=== PATIENT | male | born 1985 | race Caucasian/White ===

== ENCOUNTER 2016-11-21 13:41 | Emergency (ER) | payer OTHER ==
--- NOTE | 2016-11-21 14:13 | ED CLINICAL REPORT ---
Clinical Report - Physicians/Mid Levels [facility] [address] [place] [address] 11/21/2016 13:43 Patient: HERMAN MANN Time Seen: 13:59; initial patient contact, initial documentation, patient care assumed. Arrived- By private vehicle. Historian- patient. HISTORY OF PRESENT ILLNESS Chief Complaint: COUGH, SORE THROAT, FEVER and MUSCLE ACHES. This started about 2 weeks ago and is still present. The illness is described as moderate. The patient has had a cough, a sore throat, nasal congestion, sinus pressure and sinus drainage. He has had fever and muscle aches. He has had scant amounts of thick, yellow, green, white sputum. No blood tinged sputum or frankly bloody sputum. No difficulty breathing, chest discomfort or ear pain. (would like antibiotic shot here if ok). Additional history - The patient has had contact with a sick individual. They have had similar symptoms. No recent travel. Similar symptoms previously: None. Recent medical care: Not recently seen/assessed. REVIEW OF SYSTEMS The patient has had a headache. All systems otherwise negative, except as recorded above. PAST HISTORY See nurses notes. PROBLEMS: Cellulitis. Laceration. Hypertension. Hepatitis c. Substance Abuse. --13:58 Mirna Vera R.N. ADDITIONAL SURGERIES: no known surgeries. SOCIAL HISTORY Light tobacco smoker. History of weekly drug use: marijuana. Not exposed to second-hand smoke at home. No alcohol use. No recent travel. Is a local resident. FAMILY HISTORY Negative. ADDITIONAL NOTES The nursing notes have been reviewed with agreement regarding the chief complaint, HPI, ROS, PMH and patient medications and allergies. PHYSICAL EXAM Vital Signs: 11/21/2016 13:55 BP: 141/96. HR: 99. RR: 16. O2 saturation: 96%. Temp: 97.8 F. Pain level now: 4/10. Have been reviewed as normal and appear to be correct. Appearance: Alert. No acute distress. Eyes: Pupils equal, round and reactive to light. Eyes normal inspection. ENT: Ears normal. Nose normal. Pharynx abnormal. Mild generalized pharyngeal erythema. No pharyngeal vesicles or ulcerations. No right tonsillar exudate, right tonsillar abscess, right tonsillar swelling, right peritonsillitis, left tonsillar exudate, left tonsillar abscess, left tonsillar swelling or left peritonsillitis. Uvula midline. Neck: Normal inspection. Neck supple. CVS: Normal heart rate and rhythm. Heart sounds normal. Pulses normal. Respiratory: No respiratory distress. Breath sounds abnormal. Inspiratory mild bilateral wheezes diffusely. Abdomen: Soft and nontender. No organomegaly. Back: Normal inspection. Skin: Skin warm and dry. Normal skin color. No rash. Normal skin turgor. Extremities: Extremities exhibit normal ROM. No lower extremity edema. Neuro: Oriented X 3. No motor deficit. No sensory deficit. PROGRESS AND PROCEDURES Patient counseled in person regarding the patient's stable condition and diagnosis. 14:13. Differential Diagnosis: Other possible considerations: flu, viral illness, bronchitis, pneumonia, sinusitis, pharyngitis. Above considerations are based on history and physical exam. Differential diagnosis was discussed with patient. Disposition: Discharged home in good and unchanged condition (14:13). Condition: good and stable. CLINICAL IMPRESSION Acute mucopurulent bronchitis. No chronic obstructive pulmonary disease, asthma or bronchospasm. INSTRUCTIONS Do not work today, for two days. Drink plenty of fluids for the next 24 hours until better. Warnings: GENERAL WARNINGS: Return or contact your physician immediately if your condition worsens or changes unexpectedly, if not improving as expected, or if other problems arise. Specifically return if problem worsens. Prescription Medications: Albuterol HFA oral inhaler: inhale 1 to 2 puffs every four to six hours as needed for difficulty breathing. Dispense one (1) unit. No refills. Zithromax 250 mg tablets: take 2 orally today, followed by 1 daily for the next 4 days. No refills. Substitution is permissible. Follow-up: Follow up with your doctor in about three days even if well. Call for an appointment. Summary of care provided to patient. Understanding of the discharge instructions verbalized. (Electronically signed by Yesika Smith A.R.N.P. 11/21/2016 16:56)
--- NOTE | 2016-11-21 14:14 | ED NURSING NOTES ---
Clinical Report - [place] [address] 11/21/2016 13:43 Patient: HERMAN MANN TRIAGE Triage time 13:55 Nov 21 2016. Acuity: LEVEL 5. Chief Complaint: COUGH and SORE THROAT and (sore throat, cough, congestion x 2 weeks). 14:02 11/21/16. SEPSIS SCREEN: Sepsis Screen. Negative (no infection suspected/documented). HEATHER COMA SCORE: Heather Coma Scale: 15- eyes open spontaneously (4); best verbal response- oriented x 4 (5); best motor response- obeys commands (6). --14:02 Mirna Vera R.N. 13:55 11/21/16. BP: 141/96 (regular adult cuff) taken on the left arm, while sitting. HR: 99 (regular). RR: 16 (regular). O2 saturation: 96% on room air. Temp: 97.8 F (oral). Pain level now: 4/10. Additional comments: STREET. --14:02 Mirna Vera R.N. Weight: 99.7 kg stated. Height/Length: 71 inches Per Patient. BMI: 30.7. --13:59 Mirna Vera R.N. Medications None. --13:58 Mirna Vera R.N. Allergies No Known Drug Allergy. --13:58 Mirna Vera R.N. History Arrived by private vehicle. Historian: significant other and patient. Accompanied by friend. ( sore throat, congestion x 2 weeks, took PCN of friends for one day). SOCIAL HX: Current every day light tobacco smoker- less than 1/2 a pack per day. History of weekly drug use: marijuana. No alcohol use. He has had contact with a sick individual. ABUSE ASSESSMENT: No report of abuse. FALL RISK ASSESSMENT: Fall risk assessment completed. No fall risk identified. NUTRITIONAL RISK ASSESSMENT: The nutritional risk assessment revealed no deficiencies. FUNCTIONAL ASSESSMENT: Functional assessment: no impairments noted. LEARNING NEEDS ASSESSMENT: The learning needs assessment revealed no barriers. SKIN INTEGRITY ASSESSMENT: Skin integrity risk assessment completed. No skin integrity risk identified. --14:02 Mirna Vera R.N. PROBLEMS: Cellulitis. Laceration. Hypertension. Hepatitis c. Substance Abuse. --13:58 Mirna Vera R.N. ADDITIONAL SURGERIES: no known surgeries. Interventions ID band on patient. To treatment room. --14:02 Mirna Vera R.N. PHYSICAL ASSESSMENT 14:02 11/21/16. Ambulatory to room. GENERAL / NEURO / PSYCH: Appears in no acute distress. --14:02 Mirna Vera R.N. NURSING PROGRESS NOTES 14:03 11/21/16. Head of bed elevated. Reassurance given. Two patient identifiers checked. Call light placed in reach. Side rails up. Bed placed in lowest position. Brakes of bed on. Patient ready for evaluation- chart flagged. --14:03 Mirna Vera R.N. 14:08 11/21/16. ( Patient provided blanket on request). --14:08 Mirna Vera R.N. 14:30 11/21/2016 Ceftriaxone IM 1 gm given. Given in the right deltoid. Allergies verified and confirmed 5 rights. --14:30 Mirna Vera R.N. DISPOSITION / DISCHARGE 14:54 11/21/16. Condition at departure: unchanged. No learning barriers present. Discharge instructions provided and reviewed with the patient. Reviewed medication(s) side effects and precautions information. Patient verbalized understanding. Written instructions provided in [place]. The patient was discharged by the nurse practitioner. He was discharged home and accompanied by dimension warehouse supervisor. He left the Emergency Department ambulatory and via private vehicle. [employer] driving. FALL RISK ASSESSMENT: Fall risk assessment completed. No fall risk identified. --14:54 Mirna Vera R.N. 14:51 11/21/16. BP: 144/77 (regular adult cuff) taken on the left arm, while lying. HR: 96 (regular). RR: 16. O2 saturation: 96% on room air. Temp: 97.9 F (oral). Pain level now: 10. --14:54 Mirna Vera R.N. Departure time: 1457. --14:56 Mirna Vera R.N. Locked/Released at 11/21/2016 14:58 by Mirna Vera R.N.
--- NOTE | 2016-11-21 14:14 | ED ORDER SUMMARY ---
..... Patient: HERMAN MANN OrderSheet [facility] VisitID: [id number] [address] [place] [address] 31y, M Registration Date/Time: 11/21/2016 ORDER SHEET Weight: 99.7 kg (stated) Allergies: No Known Drug Allergy GENERAL ORDERS: MEDICATION ORDERS: Ceftriaxone IM 1 gm (NOW) (14:10 11/21/2016 Poppy A.R.N.P.) (14:30 Dali R.N.) IV FLUIDS: ORDER SHEET NOTES: [Electronically signed by Mirna Vera R.N. (14:58 11/21/2016)] [Electronically signed by Yesika SmithR.N.P. (16:56 11/21/2016)] [Electronically locked/signed by Mirna Vera R.N. (14:58 11/21/2016)]
--- NOTE | 2016-11-21 14:14 | ED NURSING NOTES ---
Clinical Report - Nurses [facility] [place] [address] 11/21/2016 13:43 Patient: HERMAN MANN TRIAGE Triage time 13:55 Nov 21 2016. Acuity: LEVEL 5. Chief Complaint: COUGH and SORE THROAT and (sore throat, cough, congestion x 2 weeks). 14:02 11/21/16. SEPSIS SCREEN: Sepsis Screen. Negative (no infection suspected/documented). HEATHER COMA SCORE: Heather Coma Scale: 15- eyes open spontaneously (4); best verbal response- oriented x 4 (5); best motor response- obeys commands (6). --14:02 Mirna Vera R.N. 13:55 11/21/16. BP: 141/96 (regular adult cuff) taken on the left arm, while sitting. HR: 99 (regular). RR: 16 (regular). O2 saturation: 96% on room air. Temp: 97.8 F (oral). Pain level now: 4/10. Additional comments: STREET. --14:02 Mirna Vera R.N. Weight: 99.7 kg stated. Height/Length: 71 inches Per Patient. BMI: 30.7. --13:59 Mirna Vera R.N. Medications None. --13:58 Mirna Vera R.N. Allergies No Known Drug Allergy. --13:58 Mirna Vera R.N. History Arrived by private vehicle. Historian: significant other and patient. Accompanied by friend. ( sore throat, congestion x 2 weeks, took PCN of friends for one day). SOCIAL HX: Current every day light tobacco smoker- less than 1/2 a pack per day. History of weekly drug use: marijuana. No alcohol use. He has had contact with a sick individual. ABUSE ASSESSMENT: No report of abuse. FALL RISK ASSESSMENT: Fall risk assessment completed. No fall risk identified. NUTRITIONAL RISK ASSESSMENT: The nutritional risk assessment revealed no deficiencies. FUNCTIONAL ASSESSMENT: Functional assessment: no impairments noted. LEARNING NEEDS ASSESSMENT: The learning needs assessment revealed no barriers. SKIN INTEGRITY ASSESSMENT: Skin integrity risk assessment completed. No skin integrity risk identified. --14:02 Mirna Vera R.N. PROBLEMS: Cellulitis. Laceration. Hypertension. Hepatitis c. Substance Abuse. --13:58 Mirna Vera R.N. ADDITIONAL SURGERIES: no known surgeries. Interventions ID band on patient. To treatment room. --14:02 Mirna Vera R.N. PHYSICAL ASSESSMENT 14:02 11/21/16. Ambulatory to room. GENERAL / NEURO / PSYCH: Appears in no acute distress. --14:02 Mirna Vera R.N. NURSING PROGRESS NOTES 14:03 11/21/16. Head of bed elevated. Reassurance given. Two patient identifiers checked. Call light placed in reach. Side rails up. Bed placed in lowest position. Brakes of bed on. Patient ready for evaluation- chart flagged. --14:03 Mirna Vera R.N. 14:08 11/21/16. ( Patient provided blanket on request). --14:08 Mirna Vera R.N. 14:30 11/21/2016 Ceftriaxone IM 1 gm given. Given in the right deltoid. Allergies verified and confirmed 5 rights. --14:30 Mirna Vera R.N. DISPOSITION / DISCHARGE 14:54 11/21/16. Condition at departure: unchanged. No learning barriers present. Discharge instructions provided and reviewed with the patient. Reviewed medication(s) side effects and precautions information. Patient verbalized understanding. Written instructions provided in [place]. The patient was discharged by the nurse practitioner. He was discharged home and accompanied by patrol conductor. He left the Emergency Department ambulatory and via private vehicle. Lead Mechanic driving. FALL RISK ASSESSMENT: Fall risk assessment completed. No fall risk identified. --14:54 Mirna Vera R.N. 14:51 11/21/16. BP: 144/77 (regular adult cuff) taken on the left arm, while lying. HR: 96 (regular). RR: 16. O2 saturation: 96% on room air. Temp: 97.9 F (oral). Pain level now: 10. --14:54 Mirna Vera R.N. Departure time: 1457. --14:56 Mirna Vera R.N. Locked/Released at 11/21/2016 14:58 by Mirna Vera R.N.
--- NOTE | 2016-11-21 14:14 | ED ORDER SUMMARY ---
..... Patient: HERMAN MANN OrderSheet [facility] VisitID: [id number] [address] [place] [address] 31y, M Registration Date/Time: 11/21/2016 ORDER SHEET Weight: 99.7 kg (stated) Allergies: No Known Drug Allergy GENERAL ORDERS: MEDICATION ORDERS: Ceftriaxone IM 1 gm (NOW) (14:10 11/21/2016 Popyp A.R.N.P.) (14:30 Dali R.N.) IV FLUIDS: ORDER SHEET NOTES: [Electronically signed by Mirna Vera R.N. (14:58 11/21/2016)] [Electronically signed by Yesika SmithR.N.P. (16:56 11/21/2016)] [Electronically locked/signed by Mirna eVra R.N. (14:58 11/21/2016)]
--- NOTE | 2016-11-21 16:56 | ED MAR SUMMARY ---
..... Medication Administration Record [facility] [address] [place] [address] Patient: HERMAN MANN Visit ID: [id number] 31y, M Weight: 99.7 kg Height/Length: 71 in BMI: 30.7 ALLERGIES: No Known Drug Allergy Given 14:30 11/21/2016 Mirna Vera R.N. Medication Administered: CEFTRIAXONE [IM], Dose: 1 gm IM. Medication Ordered: Ceftriaxone IM 1 gm (NOW).
--- NOTE | 2016-11-21 16:56 | ED MED RECONCILIATION SUMMARY ---
Patient: HERMAN MANN Medication Reconciliation Report VisitID: [id number] [address] [place] [address] 31y, M Registration Date/Time: 11/21/2016 Weight: 99.7 kg Height/Length: 71 in. BMI: 30.7 ALLERGIES: No Known Drug Allergy The patient's Home Medications are listed below: NONE. The source(s) of the original Home Medication information: Not obtained. The following Medications were given to the patient in the Emergency Department: Ceftriaxone [IM] IM 1 gm, administered: 11/21/2016 2:30:00 PM The following Medications were prescribed to the patient: Albuterol HFA oral inhaler: inhale 1 to 2 puffs every four to six hours as needed for difficulty breathing. Dispense one (1) unit. No refills. -- Yesika Smith, Myrna.R.N.P. Zithromax 250 mg tablets: take 2 orally today, followed by 1 daily for the next 4 days. No refills. Substitution is permissible. -- Yesika Smith A.R.N.P.
--- NOTE | 2016-11-21 16:56 | ED MAR SUMMARY ---
..... Medication Administration Record [facility] [address] [place] [address] Patient: HERMAN MANN Visit ID: [id number] 31y, M Weight: 99.7 kg Height/Length: 71 in BMI: 30.7 ALLERGIES: No Known Drug Allergy Given 14:30 11/21/2016 Mirna Vera R.N. Medication Administered: CEFTRIAXONE [IM], Dose: 1 gm IM. Medication Ordered: Ceftriaxone IM 1 gm (NOW).
--- NOTE | 2016-11-21 16:56 | ED DISCHARGE INSTRUCTIONS ---
Patient: HERMAN MANN General Instructions [facility] VisitID: [id number] [address] [place] [address] 31y, M Registration Date/Time: 11/21/2016 INSTRUCTIONS Do not work today, for two days. Drink plenty of fluids for the next 24 hours until better. Warnings: GENERAL WARNINGS: Return or contact your physician immediately if your condition worsens or changes unexpectedly, if not improving as expected, or if other problems arise. Specifically return if problem worsens. Prescription Medications: Albuterol HFA oral inhaler: inhale 1 to 2 puffs every four to six hours as needed for difficulty breathing. Dispense one (1) unit. No refills. Zithromax 250 mg tablets: take 2 orally today, followed by 1 daily for the next 4 days. No refills. Substitution is permissible. Follow-up: Follow up with your doctor in about three days even if well. Call for an appointment. Summary of care provided to patient. Understanding of the discharge instructions verbalized. ADDITIONAL INFORMATION Bronchitis (Adult: Abx Tx) BRONCHITIS is an infection of the air passages (bronchial tubes). It often occurs during the common cold. Symptoms include cough with mucus (phlegm) and low-grade fever. Bronchitis usually lasts 7-14 days. Mild cases can be treated with simple home remedies. More severe infection is treated with an antibiotic. Home Care: If symptoms are severe, rest at home for the first 2-3 days. When you resume activity, don't let yourself get too tired. Do not smoke. Avoid being exposed to the smoke of others. You may use acetaminophen (Tylenol) or ibuprofen (Motrin, Advil) to control fever or pain, unless another medicine was prescribed for this. [NOTE: If you have chronic liver or kidney disease or ever had a stomach ulcer or GI bleeding, talk with your doctor before using these medicines.] Your appetite may be poor, so a light diet is fine. Avoid dehydration by drinking 6-8 glasses of fluids per day (water, soft, drinks, juices, tea, soup, etc.). Extra fluids will help loosen secretions in the lungs. Xvaq-yor-rekrujx cough medicines that containdextromethorphan(such as Robitussin DM) and decongestants (Actifed or Sudafed) may help relieve cough and congestion. [NOTE: Do not use decongestants if you have high blood pressure.] Finish all antibiotic medicine, even if you are feeling better after only a few days. Follow Up with your doctor or as directed if you dont start to feel better after three days. [NOTE: If you are age 65 or older, or if you have chronic asthma or COPD, we recommend a PNEUMOCOCCAL VACCINATION every five years and a yearly INFLUENZAVACCINATION (FLU-SHOT) every . Ask your doctor about this. If you had an X-ray, a radiologist will review it. You will be notified of any new findings that may affect your care.] Get Prompt Medical Attention if any of the following occur: Fever over 100.4F (38.0C) for more than three days Trouble breathing, wheezing or pain with breathing Coughing up blood or increased amounts of colored sputum Weakness, drowsiness, headache, facial pain, ear pain or a stiff neck Albuterol Sulfate Pressurized inhalation, suspension What is this medicine? ALBUTEROL (al BYOO ter ole) is a bronchodilator. It helps open up the airways in your lungs to make it easier to breathe. This medicine is used to treat and to prevent bronchospasm. How should I use this medicine? This medicine is for inhalation through the mouth. Follow the directions on your prescription label. Take your medicine at regular intervals. Do not use more often than directed. Make sure that you are using your inhaler correctly. Ask you doctor or health care provider if you have any questions. Talk to your senior java j2ee developer regarding the use of this medicine in children. Special care may be needed. What side effects may I notice from receiving this medicine? Side effects that you should report to your doctor or health acute care clinical nurse specialist as soon as possible: allergic reactions like skin rash, itching or hives, swelling of the face, lips, or tongue breathing problems chest pain feeling faint or lightheaded, falls high blood pressure irregular heartbeat fever muscle cramps or weakness pain, tingling, numbness in the hands or feet vomiting Side effects that usually do not require medical attention (report to your doctor or health acute care clinical nurse specialist if they continue or are bothersome): cough difficulty sleeping headache nervousness or trembling stomach upset stuffy or runny nose throat irritation unusual taste What may interact with this medicine? anti-infectives like chloroquine and pentamidine caffeine cisapride diuretics medicines for colds medicines for depression or for emotional or psychotic conditions medicines for weight loss including some herbal products methadone some antibiotics like clarithromycin, erythromycin, levofloxacin, and linezolid some heart medicines steroid hormones like dexamethasone, cortisone, hydrocortisone theophylline thyroid hormones What if I miss a dose? If you miss a dose, use it as soon as you can. If it is almost time for your next dose, use only that dose. Do not use double or extra doses. Where should I keep my medicine? Keep out of the reach of children. Store at room temperature between 15 and 30 degrees C (59 and 86 degrees F). The contents are under pressure and may burst when exposed to heat or flame. Do not freeze. This medicine does not work as well if it is too cold. Throw away any unused medicine after the expiration date. Inhalers need to be thrown away after the labeled number of puffs have been used or by the expiration date; whichever comes first. Ventolin HFA should be thrown away 12 months after removing from foil pouch. Check the instructions that come with your medicine. What should I tell my health care provider before I take this medicine? They need to know if you have any of the following conditions: diabetes heart disease or irregular heartbeat high blood pressure pheochromocytoma seizures thyroid disease an unusual or allergic reaction to albuterol, levalbuterol, sulfites, other medicines, foods, dyes, or preservatives or trying to get breast-feeding What should I watch for while using this medicine? Tell your doctor or health acute care clinical nurse specialist if your symptoms do not improve. Do not use extra albuterol. If your asthma or bronchitis gets worse while you are using this medicine, call your doctor right away. If your mouth gets dry try chewing sugarless gum or sucking hard candy. Drink water as directed. Azithromycin Oral tablet What is this medicine? AZITHROMYCIN (az ith toya MYE sin) is a macrolide antibiotic. It is used to treat or prevent certain kinds of bacterial infections. It will not work for colds, flu, or other viral infections. How should I use this medicine? Take this medicine by mouth with a full glass of water. Follow the directions on the prescription label. The tablets can be taken with food or on an empty stomach. If the medicine upsets your stomach, take it with food. Take your medicine at regular intervals. Do not take your medicine more often than directed. Take all of your medicine as directed even if you think your are better. Do not skip doses or stop your medicine early. Talk to your senior java j2ee developer regarding the use of this medicine in children. Special care may be needed. What side effects may I notice from receiving this medicine? Side effects that you should report to your doctor or health acute care clinical nurse specialist as soon as possible: allergic reactions like skin rash, itching or hives, swelling of the face, lips, or tongue confusion, nightmares or hallucinations dark urine difficulty breathing hearing loss irregular heartbeat or chest pain pain or difficulty passing urine redness, blistering, peeling or loosening of the skin, including inside the mouth white patches or sores in the mouth yellowing of the eyes or skin Side effects that usually do not require medical attention (report to your doctor or health acute care clinical nurse specialist if they continue or are bothersome): diarrhea dizziness, drowsiness headache stomach upset or vomiting tooth discoloration vaginal irritation What may interact with this medicine? Do not take this medicine with any of the following medications: lincomycin This medicine may also interact with the following medications: amiodarone antacids cyclosporine digoxin magnesium nelfinavir phenytoin warfarin What if I miss a dose? If you miss a dose, take it as soon as you can. If it is almost time for your next dose, take only that dose. Do not take double or extra doses. Where should I keep my medicine? Keep out of the reach of children. Store at room temperature between 15 and 30 degrees C (59 and 86 degrees F). Throw away any unused medicine after the expiration date. What should I tell my health care provider before I take this medicine? They need to know if you have any of these conditions: kidney disease liver disease irregular heartbeat or heart disease an unusual or allergic reaction to azithromycin, erythromycin, other macrolide antibiotics, foods, dyes, or preservatives or trying to get breast-feeding What should I watch for while using this medicine? Tell your doctor or health acute care clinical nurse specialist if your symptoms do not improve. Do not treat diarrhea with over the counter products. Contact your doctor if you have diarrhea that lasts more than 2 days or if it is severe and watery. This medicine can make you more sensitive to the sun. Keep out of the sun. If you cannot avoid being in the sun, wear protective clothing and use sunscreen. Do not use sun lamps or tanning beds/booths. You have been given the following additional information: Bronchitis, Antiobiotic Treatment (Adult) Albuterol Sulfate Pressurized inhalation, suspension Azithromycin Oral tablet Do not work today, for two days. (Electronically signed by Yesika Smith A.R.N.P. 11/21/2016 16:56)
--- NOTE | 2016-11-21 16:56 | ED MED RECONCILIATION SUMMARY ---
Patient: HERMAN MANN Medication Reconciliation Report [facility] VisitID: [id number] [address] [place] [address] 31y, M Registration Date/Time: 11/21/2016 Weight: 99.7 kg Height/Length: 71 in. BMI: 30.7 ALLERGIES: No Known Drug Allergy The patient's Home Medications are listed below: NONE. The source(s) of the original Home Medication information: Not obtained. The following Medications were given to the patient in the Emergency Department: Ceftriaxone [IM] IM 1 gm, administered: 11/21/2016 2:30:00 PM The following Medications were prescribed to the patient: Albuterol HFA oral inhaler: inhale 1 to 2 puffs every four to six hours as needed for difficulty breathing. Dispense one (1) unit. No refills. -- Yesika Smith, Myrna.R.N.P. Zithromax 250 mg tablets: take 2 orally today, followed by 1 daily for the next 4 days. No refills. Substitution is permissible. -- Yesika Smith A.R.N.P.
== END 2016-11-21 14:57 | disposition home or self-care (01) ==
LOC: ED SRH 13:41
DX: J20.8 Acute bronchitis due to other specified organisms (principal); I10 Essential (primary) hypertension; F17.210 Nicotine dependence, cigarettes, uncomplicated